=== PATIENT | female | born 1980 | race Caucasian/White ===

== ENCOUNTER 2019-12-07 18:21 | Emergency (ER) | payer BC ==
[~2019-12-07] VITALS: Ht 154.9 cm; Wt 70.8 kg
[2019-12-07 18:41] VITALS: Ht 154.9 cm; Wt 70.8 kg
[2019-12-07 21:17] VITALS: BP 119/71
== END 2019-12-07 21:17 | disposition home or self-care (01) ==
LOC: ED 18:21
DX: J20.9 Acute bronchitis, unspecified (principal); Z90.89 Acquired absence of other organs; Z98.890 Other specified postprocedural states